=== PATIENT | male | born 1980 | race Caucasian/White ===

== ENCOUNTER 2023-03-19 10:33 | Emergency (ER) | payer BC ==
[~2023-03-19] VITALS: Ht 180.3 cm; Wt 94.2 kg
--- NOTE | 2023-03-19 11:00 | NUR ---
PT REPORTS TO THE ER FOR PRESSURE IN BACK OF HEAD ON THE RIGHT SIDE, PT ALSO REPORTS HIS RIGHT EYE HAS BEEN WATERING, PT REPORTS PAIN IN WORSE AT NIGHT. PT REPORTS BLURRING IN RIGHT EYE.
[2023-03-19] MEDS ORDERED: dexamethasone sod phosphate 10mg/ml inj IM STA (11:04)
[2023-03-19] MEDS ORDERED: SUMAtriptan succ. 6 MG/0.5ml vial SQ ONE (11:05)
[2023-03-19] MEDS ORDERED: ketorolac trometh inj. 60 MG/2 ML VIAL IM ONE (11:05)
--- NOTE | 2023-03-19 11:26 | NUR ---
AGREE WITH BRE MALDONADO NURSING ASSESSMENT.
[2023-03-19] MEDS ORDERED: SUMA25TA35 PO (11:41)
[2023-03-19 12:19] VITALS: BP 173/123; PULSE 98; RESP 17; TEMP 97.9; O2SAT 98
== END 2023-03-19 12:21 | disposition home or self-care (01) ==
LOC: ER 10:34
DX: R51.9 Headache, unspecified (principal); Z88.8 Allergy status to other drugs, medicaments and biological substances; Z79.899 Other long term (current) drug therapy; Z72.89 Other problems related to lifestyle
CPT/HCPCS: 70450; 96372; 99285; J1100; J1885; J3030; A4620